=== PATIENT | female | born 1990 | race American Indian/Alaskan Native ===

== ENCOUNTER 2016-08-05 23:13 | Emergency (ER) | payer SELFPAY ==
[2016-08-05 23:40] VITALS: BMI 32.1
[2016-08-05 23:42] VITALS: BP 118/74; PULSE 75; RESP 18; TEMP 98.3; O2SAT 100
--- NOTE | 2016-08-06 00:06 | ED PDOC ---
Arrival/HPI - General Historian: Patient - History of Present Illness Time/Duration: Other (3 days) Context: Home <Lilian Denise - Last Filed: 08/06/16 00:24> <Enrike Padgett - Last Filed: 08/06/16 01:18> - General Chief Complaint: Abdominal Pain Time Seen by Provider: 08/06/16 00:02 - History of Present Illness Narrative History of Present Illness (Text): 08/06/16 00:05 This 26 yo female with pmh chronic constipation, presents to this ED c/o constipation x 3 days. Patient is requesting medication for constipation. Patient noted mild abdominal pain, but she does not have pain at this time. Patient denies urinary symptoms. (Lilian Denise) Past Medical History - Provider Review Nursing Documentation Reviewed: Yes - Past History Past History: No Previous - Infectious Disease Hx of Infectious Diseases: None - Tetanus Immunization Tetanus Immunization: Unknown - Past Medical History Past Medical History: No Previous - HEENT Other/Comment: ear infection - Hematological/Oncological Hx Blood Disorders: No - Psychiatric Hx Depression: No Hx Emotional Abuse: No Hx Physical Abuse: No Hx Substance Use: No - Past Surgical History Past Surgical History: No Previous - Anesthesia Hx Anesthesia: No - Suicidal Assessment Feels Threatened In Home Enviroment: No <Lilian Denise - Last Filed: 08/06/16 00:24> Family/Social History - Physician Review Nursing Documentation Reviewed: Yes Family/Social History: No Known Family HX Smoking Status: Never Smoked Hx Alcohol Use: No Hx Substance Use: No Hx Substance Use Treatment: No <Lilian Denise - Last Filed: 08/06/16 00:24> Allergies/Home Meds <Lilian Denise - Last Filed: 08/06/16 00:24> <Enrike Padgett - Last Filed: 08/06/16 01:18> Allergies/Adverse Reactions: Allergies No Known Allergies Allergy (Verified 05/09/15 17:56) Review of Systems - Review of Systems Constitutional: Normal. absent: Fatigue, Weight Change, Fevers Eyes: Normal ENT: Normal Respiratory: Normal. absent: SOB, Cough Cardiovascular: Normal. absent: Chest Pain, Palpitations Gastrointestinal: Abdominal Pain, Constipation. absent: Diarrhea, Nausea, Vomiting Genitourinary Female: Normal. absent: Dysuria, Frequency, Vaginal Bleeding, Vaginal Discharge Musculoskeletal: Normal. absent: Back Pain, Neck Pain Skin: Normal Neurological: Normal Endocrine: Normal Hemo/Lymphatic: Normal Psychiatric: Normal <Lilian Denise - Last Filed: 08/06/16 00:24> Physical Exam Temperature: Afebrile Blood Pressure: Normal Pulse: Regular Respiratory Rate: Normal Appearance: Positive for: Well-Appearing, Non-Toxic, Comfortable Pain Distress: None Mental Status: Positive for: Alert and Oriented X 3 - Systems Exam Head: Present: Atraumatic, Normocephalic Pupils: Present: PERRL Extroacular Muscles: Present: EOMI Conjunctiva: Present: Normal Mouth: Present: Moist Mucous Membranes Neck: Present: Normal Range of Motion Respiratory/Chest: Present: Clear to Auscultation, Good Air Exchange. No: Respiratory Distress, Accessory Muscle Use Cardiovascular: Present: Regular Rate and Rhythm, Normal S1, S2. No: Murmurs Abdomen: Present: Normal Bowel Sounds. No: Tenderness, Distention, Peritoneal Signs, Rebound, Guarding Genitourinary/Pelvic Exam: Present: Other (deferred) Back: Present: Normal Inspection. No: CVA Tenderness Upper Extremity: Present: Normal Inspection, Normal ROM, NORMAL PULSES, Neurovascularly Intact, Capillary Refill < 2s. No: Cyanosis, Edema Lower Extremity: Present: Normal Inspection, NORMAL PULSES, Normal ROM, Neurovascularly Intact, Capillary Refill < 2 s. No: Edema, CALF TENDERNESS Neurological: Present: GCS=15, CN II-XII Intact, Speech Normal, Motor Func Grossly Intact, Normal Sensory Function, Normal Cerebellar Funct, Gait Normal, Memory Normal Skin: Present: Warm, Dry, Normal Color. No: Rashes Psychiatric: Present: Alert, Oriented x 3 <Lilian Denise - Last Filed: 08/06/16 00:24> Vital Signs Temp Pulse Resp BP Pulse Ox 08/05/16 23:42 98.3 F 75 18 118/74 100 Medical Decision Making Re-evaluation Time: 00:28 Reassessment Condition: Re-examined, Improved <Lilian Denise - Last Filed: 08/06/16 00:24> <Enrike Padgett - Last Filed: 08/06/16 01:18> ED Course and Treatment: 08/06/16 00:27 Re-evaluation. Patient feels better. Discussed results and plan with patient who expresses understanding. All questions answered and there is agreement with the plan to discharge home with instructions. Patient stable for discharge. Return if symptoms persist or worsen. (Lilian Denise) - Medication Orders Current Medication Orders: Discontinued Medications Lactulose (Enulose) 10 gm PO ONCE ONE Stop: 08/06/16 00:24 Magnesium Citrate (Citrate Of Mag) 300 ml PO ONCE ONE Stop: 08/06/16 00:24 - PA / RECREATION PROGRAM COORDINATOR / Resident Statement / has reviewed & agrees with the documentation as recorded. <Enrike Padgett - Last Filed: 08/06/16 01:18> Disposition/Present on Arrival - Present on Arrival Any Indicators Present on Arrival: No History of DVT/PE: No History of Uncontrolled Diabetes: No Urinary Catheter: No History of Decub. Ulcer: No History Surgical Site Infection Following: None - Disposition Have Diagnosis and Disposition been Completed?: Yes Disposition Time: 00:28 Patient Plan: Discharge <Lilian Denise - Last Filed: 08/06/16 00:24> <Enrike Padgett - Last Filed: 08/06/16 01:18> - Disposition Diagnosis: Constipation, Nonspecific abdominal pain Discharge Instructions (ExitCare): Constipation (ED) Additional Instructions: Call private doctor for follow up visit in 1-2 days. Take medication as instructed. Return to emergency if symptoms worsen or abdominal pain returns Prescriptions: Lactulose 10 gm PO TID PRN #180 ml PRN Reason: Constipation Polyethylene Glycol 3350 [Miralax] 17 gm PO DAILY #1 bottle Referrals: [facility] [Outside] - Follow up with primary Forms: SCHOOL NOTE, WORK NOTE
[2016-08-06] MEDS ORDERED: Magnesium Citrate Oral SOL (300 ml) PO ONE (00:23)
== END 2016-08-06 01:19 | disposition home or self-care (01) ==
LOC: ED 23:13
DX: K59.00 Constipation, unspecified (principal); R10.9 Unspecified abdominal pain

== ENCOUNTER 2017-06-23 20:34 | Emergency (ER) | payer SELFPAY ==
[2017-06-23 20:35] VITALS: BMI 32.1
[2017-06-23 20:55] VITALS: BP 112/73; PULSE 75; RESP 16; TEMP 98.8; O2SAT 100
--- NOTE | 2017-06-23 20:55 | ED PDOC ---
Arrival/HPI <Enrike Padgett - Last Filed: 06/23/17 21:13> - General Historian: Patient - History of Present Illness Time/Duration: Other (see hpi) Context: Home <Lilian Denise - Last Filed: 06/25/17 15:50> - General Time Seen by Provider: 06/23/17 20:38 - History of Present Illness Narrative History of Present Illness (Text): 06/23/17 20:55 This 27 yo female presents to this ED with mother c/o left toothache, that radiates to right ear x 3 days. Patient stated she saw dentist, who prescribed her PCN, Tylenol #3. Patient stated she continue with pain. Denies fever, facial swelling, skin rash, or abnormal gait. (Lilian Denise) Past Medical History - Provider Review Nursing Documentation Reviewed: Yes - Past History Past History: No Previous - Infectious Disease Hx of Infectious Diseases: None - Tetanus Immunization Tetanus Immunization: Unknown - Past Medical History Past Medical History: No Previous - HEENT Other/Comment: ear infection - Hematological/Oncological Hx Blood Disorders: No - Psychiatric Hx Depression: No Hx Emotional Abuse: No Hx Physical Abuse: No Hx Substance Use: No - Past Surgical History Past Surgical History: No Previous - Anesthesia Hx Anesthesia: No - Suicidal Assessment Feels Threatened In Home Enviroment: No <Lilian Denise - Last Filed: 06/25/17 15:50> Family/Social History - Physician Review Nursing Documentation Reviewed: Yes Family/Social History: Other (noncontributory) Smoking Status: Never Smoked Hx Alcohol Use: No Hx Substance Use: No Hx Substance Use Treatment: No <Lilian Denise - Last Filed: 06/25/17 15:50> Allergies/Home Meds <Enrike Padgett - Last Filed: 06/23/17 21:13> <Lilian Denise - Last Filed: 06/25/17 15:50> Allergies/Adverse Reactions: Allergies No Known Allergies Allergy (Verified 06/23/17 20:44) Home Medications: Home Meds Medication Instructions Recorded Confirmed Acetaminophen/Codeine 1 tab PO PRN PRN 06/23/17 06/23/17 [Tylenol/Codeine 300 MG/30 MG] Penicillin VK [Penicillin VK Tab] 500 mg PO DAILY 06/23/17 06/23/17 Review of Systems - Review of Systems Constitutional: Normal. absent: Fatigue, Weight Change, Fevers Eyes: Normal ENT: Other (dental pain) Respiratory: Normal Cardiovascular: Normal Gastrointestinal: Normal Genitourinary Female: Normal Musculoskeletal: Normal Skin: Normal Neurological: Normal. absent: Headache, Dizziness, Focal Weakness, Gait Changes Endocrine: Normal Hemo/Lymphatic: Normal Psychiatric: Normal <Denise,Nahim P - Last Filed: 06/25/17 15:50> Physical Exam Temperature: Afebrile Blood Pressure: Normal Pulse: Regular Respiratory Rate: Normal Appearance: Positive for: Well-Appearing, Non-Toxic, Comfortable Pain Distress: None Mental Status: Positive for: Alert and Oriented X 3 - Systems Exam Head: Present: Atraumatic, Normocephalic Pupils: Present: PERRL Extroacular Muscles: Present: EOMI Conjunctiva: Present: Normal Ears: Present: Normal, NORMAL TM, Normal Canal. No: Erythema, TM Bulging, Fluid , TM Perf Mouth: Present: Moist Mucous Membranes, Normal Lips, Normal Tounge, Other ((+) tooth root visuaized #20. no denatl abscess , dariange or gingivitis). No: Trismus Pharnyx: Present: Normal. No: ERYTHEMA, EXUDATE, TONSILS ENLARGED Neck: Present: Normal Range of Motion. No: Meningeal Signs, MIDLINE TENDERNESS , Paraspinal Tenderness, Lymphadenopathy Respiratory/Chest: Present: Clear to Auscultation, Good Air Exchange. No: Respiratory Distress, Accessory Muscle Use, Wheezes Cardiovascular: Present: Regular Rate and Rhythm, Normal S1, S2. No: Murmurs Upper Extremity: Present: Normal Inspection, Normal ROM Lower Extremity: Present: Normal Inspection, Normal ROM Neurological: Present: GCS=15, CN II-XII Intact, Speech Normal, Motor Func Grossly Intact, Normal Sensory Function, Normal Cerebellar Funct, Gait Normal Skin: Present: Warm, Dry, Normal Color. No: Rashes Psychiatric: Present: Alert, Oriented x 3, Normal Insight, Normal Concentration <Denise,Nahim P - Last Filed: 06/25/17 15:50> Vital Signs Temp Pulse Resp BP Pulse Ox 06/23/17 20:35 98.8 F 75 16 112/73 100 Medical Decision Making <Enrike Padgett - Last Filed: 06/23/17 21:13> Re-evaluation Time: 21:01 Reassessment Condition: Re-examined, Improved <Lilian Denise - Last Filed: 06/25/17 15:50> ED Course and Treatment: 06/23/17 21:00 Re-evaluation. Patient feels better. Discussed results and plan with patient who expresses understanding. All questions answered and there is agreement with the plan to discharge home with instructions. Patient stable for discharge. Return if symptoms persist or worsen. Patient has a referral to see Oral surgeon in [facility]. She was recommended to f/u in 1 day. To stop PCN VK, and to start Clindamycin. Return to emergency if symptoms worsen. (Lilian Denise) - Medication Orders Current Medication Orders: Discontinued Medications Clindamycin HCl (Cleocin) 300 mg PO STAT STA PRN Reason: Protocol Stop: 06/23/17 20:57 Last Admin: 06/23/17 21:17 Dose: 300 mg Ketorolac Tromethamine (Toradol) 60 mg IM STAT STA Stop: 06/23/17 20:58 Last Admin: 06/23/17 21:20 Dose: 60 mg MAR Pain Assessment Document 06/23/17 21:20 J[facility] (Rec: 06/23/17 21:20 [id number] Pain Reassessment Is this a pain reassessment? No Sleep Is patient sleeping during reassessment? No Presence of Pain Presence of Pain Yes Pain Scale Used Pain Scale Used Numeric Location Pain Location Body Site Face Description Intensity of Pain at present 1 IM Administration Charges Document 06/23/17 21:20 JOL (Rec: 06/23/17 21:20 JOL [id number]) Injection Site MAR Injection Site Left Deltoid Charges for Administration # of IM Administrations 1 - PA / SALESPERSON [employer]OMOBILES / Resident Statement / has reviewed & agrees with the documentation as recorded. / has examined the patient and agrees with the treatment plan. <Enrike Padgett - Last Filed: 06/23/17 21:13> Disposition/Present on Arrival <Enrike Padgett - Last Filed: 06/23/17 21:13> - Present on Arrival Any Indicators Present on Arrival: No History of DVT/PE: No History of Uncontrolled Diabetes: No Urinary Catheter: No History of Decub. Ulcer: No History Surgical Site Infection Following: None - Disposition Have Diagnosis and Disposition been Completed?: Yes Disposition Time: 21:03 Patient Plan: Discharge <HowieLilian Varela - Last Filed: 06/25/17 15:50> - Disposition Diagnosis: Dental caries Disposition: HOME/ ROUTINE Condition: GOOD Discharge Instructions (ExitCare): Dental Caries (ED), Toothache (ED) Additional Instructions: Call private doctor for follow up visit in 1-2 days. Take medication as instructed with food. Return to emergency if pain worsen. Continue with medication prescribed by your dentist, but stop Penicillin VK and take Clindamycin instead. MAKE SURE TO CALL YOUR ORAL SURGEON OFFICE TOMORROW FOR REVALUATION AND EXTRACTION OF THE TOOTH AT EARLIEST APPOINTMENT. Prescriptions: Chlorhexidine 0.12% [Peridex] 15 ml PO BID #1 bottle Clindamycin [Cleocin] 300 mg PO QID #28 cap Naproxen 500 mg PO BID #14 tab Referrals: [facility] [Outside] - Follow up with primary [facility] [Outside] - Follow up with primary Forms: WORK NOTE
== END 2017-06-23 21:26 | disposition home or self-care (01) ==
LOC: ED 20:34
DX: K02.9 Dental caries, unspecified (principal)
CPT/HCPCS: 81025; 96372; 99283; J1885

== ENCOUNTER 2018-04-06 22:41 | Emergency (ER) | payer SELFPAY ==
[2018-04-06 22:48] VITALS: BMI 26.6
[2018-04-06 22:50] VITALS: BP 114/77; PULSE 77; RESP 18; TEMP 98.9; O2SAT 100
--- NOTE | 2018-04-07 00:07 | ED PDOC ---
Arrival/HPI - General Chief Complaint: Finger,Hand,&Wrist Time Seen by Provider: 04/06/18 23:00 Historian: Patient - History of Present Illness Narrative History of Present Illness (Text): 27 year old female with no significant past medical history presents to the Emergency Department complaining of bilateral wrist pain x 5 days. States she was lifting a very heavy rug at work on Saturday and experienced immediate pain to bilateral wrists following the incident. Patient states the pain is worse with wrist movement and she's been having difficulty working out and lifting weights. Has not taken any medication for pain. Denies numbness, paresthesias, weakness, hand pain, elbow pain, lacerations, abrasions, or any other associated symptoms Past Medical History - Provider Review Nursing Documentation Reviewed: Yes - Past History Past History: No Previous - Infectious Disease Hx of Infectious Diseases: None - Tetanus Immunization Tetanus Immunization: Unknown - Past Medical History Past Medical History: No Previous - HEENT Other/Comment: ear infection - Hematological/Oncological Hx Blood Disorders: No - Psychiatric Hx Depression: No Hx Emotional Abuse: No Hx Physical Abuse: No Hx Substance Use: No - Past Surgical History Past Surgical History: No Previous - Anesthesia Hx Anesthesia: No - Suicidal Assessment Feels Threatened In Home Enviroment: No Family/Social History - Physician Review Nursing Documentation Reviewed: Yes Family/Social History: No Known Family HX Smoking Status: Never Smoked Hx Alcohol Use: No Hx Substance Use: No Hx Substance Use Treatment: No Allergies/Home Meds Allergies/Adverse Reactions: Allergies No Known Allergies Allergy (Verified 04/06/18 22:48) Review of Systems - Physician Review All systems were reviewed & negative as marked: Yes - Review of Systems Constitutional: Normal Eyes: Normal ENT: Normal Respiratory: Normal. absent: SOB, Cough Cardiovascular: Normal. absent: Chest Pain, Palpitations, Syncope Gastrointestinal: Normal. absent: Abdominal Pain, Nausea, Vomiting Genitourinary Female: Normal Musculoskeletal: Arthralgias (bilateral wrists). absent: Back Pain, Neck Pain Skin: Normal. absent: Rash, Laceration, Cellulitis Neurological: Normal. absent: Headache, Dizziness Endocrine: Normal Hemo/Lymphatic: Normal Psychiatric: Normal Physical Exam Vital Signs Reviewed: Yes Vital Signs Temp Pulse Resp BP Pulse Ox 04/06/18 22:48 98.9 F 77 18 114/77 100 Temperature: Afebrile Blood Pressure: Normal Pulse: Regular Respiratory Rate: Normal Appearance: Positive for: Well-Appearing, Non-Toxic, Comfortable Pain Distress: None Mental Status: Positive for: Alert and Oriented X 3 - Systems Exam Head: Present: Atraumatic, Normocephalic Pupils: Present: PERRL Extroacular Muscles: Present: EOMI Conjunctiva: Present: Normal Mouth: Present: Moist Mucous Membranes Neck: Present: Normal Range of Motion Respiratory/Chest: Present: Clear to Auscultation, Good Air Exchange. No: Respiratory Distress, Accessory Muscle Use Cardiovascular: Present: Regular Rate and Rhythm, Normal S1, S2, Peripheal Pulses Present. No: Murmurs Back: Present: Normal Inspection Upper Extremity: Present: Normal Inspection, Normal ROM, NORMAL PULSES, Tenderness (mild to volar wrists bilaterally), Neurovascularly Intact, Capillary Refill < 2s, Other (FROM bilateral wrists but reports pain; full strength bilaterally). No: Cyanosis, Edema, Swelling, Erythema, Temperature Abnormalties, Deformity Lower Extremity: Present: Normal Inspection, NORMAL PULSES, Normal ROM, Neuro vascularly Intact, Capillary Refill < 2 s. No: Edema Neurological: Present: GCS=15, CN II-XII Intact, Speech Normal, Motor Func Grossly Intact, Normal Sensory Function, Gait Normal, Memory Normal Skin: Present: Warm, Dry, Normal Color. No: Rashes Psychiatric: Present: Alert, Oriented x 3, Normal Insight, Normal Concentration, Normal Affect, Normal Mood Medical Decision Making ED Course and Treatment: Initial Plan: * POC urine preg * Bilateral wrist XR * Toradol * Reassess and Disposition Bilateral wrist XR read as negative for acute fracture or dislocation by me and Dr. Hammer Patient reports decreased pain after medication. Pt given bilateral wrist braces Plan of care discussed with patient, and strict instructions given regarding prescriptions, importance of follow up, and signs to return to Emergency Department, to include worsening pain, numbness, weakness, or any other new/worsening symptoms. Patient verbalizes understanding of discussion. Patient A&Ox3, ambulating with steady gait, stable for discharge home. - RAD Interpretation Radiology Orders: 04/06/18 23:08 WRIST 3 VIEWS BI [RAD] Stat Disposition/Present on Arrival - Present on Arrival Any Indicators Present on Arrival: No History of DVT/PE: No History of Uncontrolled Diabetes: No Urinary Catheter: No History of Decub. Ulcer: No History Surgical Site Infection Following: None - Disposition Have Diagnosis and Disposition been Completed?: Yes Diagnosis: Wrist sprain Disposition: HOME/ ROUTINE Disposition Time: 00:15 Patient Plan: Discharge Condition: IMPROVED Discharge Instructions (ExitCare): Wrist Sprain (DC) Additional Instructions: Rest, elevate, ice injured wrists Ibuprofen/tylenol for pain Use wrist splints during work Followup with hand doctor within 2 days Followup with primary within 2 days Return to ER for any new/worsening symptoms Prescriptions: Naproxen 500 mg PO DAILY PRN #14 tablet PRN Reason: Pain, Moderate (4-7) Referrals: Joe Guerra MD [Staff Provider] - Follow up with primary Eitan Abbott MD [Staff Provider] - Follow up with primary Forms: [employer] (Irish), WORK NOTE
--- NOTE | 2018-04-07 10:50 | RAD ---
Date of service: 04/06/2018 PROCEDURE: Bilateral Wrists Radiographs. HISTORY: wrist pain s/p injury COMPARISON: None. FINDINGS: BONES: Right Carpal Bones: Normal. No fracture or degenerative changes. Left Carpal Bones: Normal. No fracture or degenerative changes. Right Distal Radius and Ulna: No fracture or degenerative changes. Left Distal Radius and Ulna: No fracture or degenerative changes. JOINT SPACES: Right Wrist: Normal. No degenerative changes. Left Wrist: Normal. No degenerative changes. SOFT TISSUES: Right Wrist: Normal. Left Wrist: Normal. OTHER FINDINGS: None. IMPRESSION: Normal radiographs of the wrists.
== END 2018-04-07 00:29 | disposition home or self-care (01) ==
LOC: ED 22:41
DX: S63.502A Unspecified sprain of left wrist, initial encounter (principal); S63.501A Unspecified sprain of right wrist, initial encounter; X50.0XXA Overexertion from strenuous movement or load, initial encounter; Y92.9 Unspecified place or not applicable

== ENCOUNTER 2018-04-14 20:07 | Emergency (ER) | payer SELFPAY ==
[2018-04-14 20:07] VITALS: BMI 26.6
--- NOTE | 2018-04-14 21:57 | ED PDOC ---
Arrival/HPI - General Chief Complaint: Finger,Hand,&Wrist Time Seen by Provider: 04/14/18 20:45 Historian: Patient - History of Present Illness Narrative History of Present Illness (Text): 04/14/18 20:50 27 year old female, with no significant past medical history, who presents to the Emergency department complaining of bilateral wrist pain for 1.5 weeks status post lifting a heavy rug. Patient was initially evaluated after the injury in the ER on 04/06/2018. Patient was diagnosed with wrist sprain, given bilateral wrist braces, prescription for Naproxen, and recommended to follow-up with orthopedics. Patient has not followed-up with orthopedics since then and has been taking Aleve daily for pain without much relief. Patient reports pain is intermittent and worse with lifting/movement. 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 Patient denies any weakness, numbness, paresthesias, pain elsewhere, or any other complaints. Time/Duration: 1 week Symptom Onset: Gradual Symptom Course: Unchanged Activities at Onset: Light Context: Home Past Medical History - Provider Review Nursing Documentation Reviewed: Yes - Past History Past History: No Previous - Infectious Disease Hx of Infectious Diseases: None - Tetanus Immunization Tetanus Immunization: Unknown - Past Medical History Past Medical History: No Previous - HEENT Other/Comment: ear infection - Hematological/Oncological Hx Blood Disorders: No - Psychiatric Hx Depression: No Hx Emotional Abuse: No Hx Physical Abuse: No Hx Substance Use: No - Past Surgical History Past Surgical History: No Previous - Anesthesia Hx Anesthesia: No - Suicidal Assessment Feels Threatened In Home Enviroment: No Family/Social History - Physician Review Nursing Documentation Reviewed: Yes Family/Social History: Unknown Family HX Smoking Status: Never Smoked Hx Alcohol Use: No Hx Substance Use: No Hx Substance Use Treatment: No Allergies/Home Meds Allergies/Adverse Reactions: Allergies No Known Allergies Allergy (Verified 04/14/18 20:34) Review of Systems - Physician Review All systems were reviewed & negative as marked: Yes - Review of Systems Constitutional: Normal. absent: Fevers Eyes: Normal ENT: Normal Respiratory: Normal. absent: SOB, Cough Cardiovascular: Normal. absent: Chest Pain Gastrointestinal: Normal. absent: Abdominal Pain, Nausea, Vomiting Genitourinary Female: Normal. absent: Dysuria, Frequency, Hematuria, Urine Output Changes Musculoskeletal: Arthralgias (+bilateral wrist pain). absent: Back Pain, Neck Pain Skin: Normal. absent: Rash Neurological: Normal. absent: Headache, Dizziness Endocrine: Normal Hemo/Lymphatic: Normal Psychiatric: Normal Physical Exam Vital Signs Reviewed: Yes Temperature: Afebrile Blood Pressure: Normal Pulse: Regular Respiratory Rate: Normal Appearance: Positive for: Well-Appearing, Non-Toxic, Comfortable Pain Distress: None Mental Status: Positive for: Alert and Oriented X 3 - Systems Exam Head: Present: Atraumatic, Normocephalic Pupils: Present: PERRL Extroacular Muscles: Present: EOMI Conjunctiva: Present: Normal Mouth: Present: Moist Mucous Membranes Neck: Present: Normal Range of Motion Respiratory/Chest: Present: Clear to Auscultation, Good Air Exchange. No: Respiratory Distress, Accessory Muscle Use Cardiovascular: Present: Regular Rate and Rhythm, Normal S1, S2. No: Murmurs Abdomen: No: Tenderness, Distention, Peritoneal Signs Upper Extremity: Present: Normal ROM, NORMAL PULSES, Tenderness (Mild tenderness to ventral aspects of wrists bilaterally), Neurovascularly Intact (Motor strength 5/5 in bilateral wrists), Capillary Refill < 2s. No: Cyanosis, Edema, Swelling, Erythema, Temperature Abnormalties, Deformity, Other (No ecchymosis) Lower Extremity: Present: Normal Inspection, Normal ROM. No: Edema Neurological: Present: GCS=15, CN II-XII Intact, Speech Normal, Motor Func Grossly Intact, Normal Sensory Function, Gait Normal Skin: Present: Warm, Dry, Normal Color. No: Rashes Psychiatric: Present: Alert, Oriented x 3, Normal Insight, Normal Concentration, Normal Affect, Normal Mood Medical Decision Making ED Course and Treatment: 04/14/18 20:50 Initial Plan: -- Tylenol -- Reassess and disposition Xrays of bilateral wrists negative for any acute pathology from visit on 04/06. Progress Notes: Patient provided with multiple orthopedic follow-up options and prescription for a medrol dose pack. Plan of care discussed with patient, and strict instructions given regarding prescriptions, importance of follow up, and signs to return to Emergency Department, to include worsening pain, fevers, chills, numbness, paresthesias or any other new/worsening symptoms. Patient verbalizes understanding of discussion. Patient A&Ox3, ambulating with steady gait, stable for discharge home. - Medication Orders Current Medication Orders: Discontinued Medications Acetaminophen (Tylenol 325mg Tab) 650 mg PO STAT STA Stop: 04/14/18 20:54 Last Admin: 04/14/18 21:10 Dose: 650 mg - Scribe Statement The provider has reviewed the documentation as recorded by the Xin Willams Provider Scribe Attestation: All medical record entries made by the Scribe were at my direction and personally dictated by me. I have reviewed the chart and agree that the record accurately reflects my personal performance of the history, physical exam, medical decision making, and the department course for this patient. I have also personally directed, reviewed, and agree with the discharge instructions and disposition. Disposition/Present on Arrival - Present on Arrival Any Indicators Present on Arrival: No History of DVT/PE: No History of Uncontrolled Diabetes: No Urinary Catheter: No History of Decub. Ulcer: No History Surgical Site Infection Following: None - Disposition Have Diagnosis and Disposition been Completed?: Yes Diagnosis: Wrist sprain Disposition: HOME/ ROUTINE Disposition Time: 21:40 Condition: STABLE Discharge Instructions (ExitCare): Common Wrist Injuries Additional Instructions: Take medrol dose pack as prescribed Naproxen as prescribed Followup with primary doctor or clinic within 2 days Followup with orthopedics within 2 days Return to ER with any new/worsening symptoms Prescriptions: Methylprednisolone [Medrol Dose Pack (21 tabs)] 4 mg PO DAILY #21 mg Naproxen [Naprosyn] 500 mg PO DAILY PRN #14 tablet PRN Reason: Pain, Moderate (4-7) Referrals: [facility] [Outside] - Follow up with primary Clifford Villagomez III, MD [Medical Doctor] - Follow up with primary Eitan Abbott MD [Staff Provider] - Follow up with primary Forms: [employer] (Urdu), WORK NOTE
[2018-04-14 22:09] VITALS: BP 122/85; PULSE 85; RESP 18; TEMP 98.5; O2SAT 99
== END 2018-04-14 21:58 | disposition home or self-care (01) ==
LOC: ED 20:07
DX: S63.502A Unspecified sprain of left wrist, initial encounter (principal); S63.501A Unspecified sprain of right wrist, initial encounter; X50.0XXA Overexertion from strenuous movement or load, initial encounter